=== PATIENT | female | born 1990 | race Caucasian/White ===

== ENCOUNTER → 2020-05-07 | Outpatient (CLI) | payer MEDICAID ==
[~2020-05-07] MED LIST: CEFAZOLIN SODIUM 1000MG/VIAL ONE; DIPHENHYDRAMINE 50MG/ML VIAL ONE; EPHEDRINE SULFATE 50MG/ML VIAL ONE; FERR325T6 MT; GLYCOPYRROLATE 0.2 MG/ML 2ML VIAL ONE; IBUP-2030 PO; METOCLOPRAMIDE HCL 10MG/2ML VIAL ONE; MORPHINE SULFATE/PF 1MG/ML 10ML AMP ONE; OXYTOCIN 10 UNITS/ML 1ML ONE; PHENYLEPHRINE HCL 10 MG/ML 1ML (IV VIAL) IV ONE; PNV1TABL50 MT; SODIUM CHLORIDE 0.9% 10ML VIAL ONE; STERILE WATER FOR INJECTION 10ML VIAL ONE
== END | disposition home or self-care (01) ==
LOC: LAB 12:55
PROVIDERS: ATTEND Obstetrics & Gynecology
DX: Z11.59 Encounter for screening for other viral diseases (principal)
CPT/HCPCS: 87635; C9803; J1200

== ENCOUNTER 2020-05-09 05:46 | Inpatient (IN) | payer MEDICAID ==
[~2020-05-09] VITALS: Ht 152.4 cm; Wt 88.0 kg
[2020-05-09] MEDS ORDERED: PNV1TABL50 MT (06:25)
[2020-05-09] MEDS ORDERED: LACTATED RINGERS 1,000 ML IV SCH (06:26)
[2020-05-09 07:36] LABS: CLARITY URINE CLEAR (CLEAR); COLOR URINE YELLOW (YELLOW); KETONES URINE NEGATIVE (NEGATIVE); LEUKOCYTE ESTERASE URINE NEGATIVE (NEGATIVE); NITRITE URINE NEGATIVE (NEGATIVE); OCCULT BLOOD URINE NEGATIVE (NEGATIVE); PH URINE 6.5 (4.5-8.0); PROTEIN URINE NEGATIVE (NEGATIVE); SPECIFIC GRAVITY URINE 1.023 (1.005-1.030); UROBILINOGEN URINE 0.2 E.U./dL (0.2-1.0)
[2020-05-09 07:39] LABS: BASOPHILS % 0.3 % (0.0-2.0); EOSINOPHILS % 1.3 % (0.0-5.0); HEMATOCRIT. 32.7 % (36.0-48.0); HEMOGLOBIN. 10.5 g/dL (12.0-16.0); LYMPHOCYTES % 25.2 % (20.0-50.0); MEAN CORPUSCULAR HEMOGLOBIN 24.9 pg (28.0-32.0); MEAN CORPUSCULAR VOLUME 77.5 fL (81.0-99.0); MONOCYTES % 7.9 % (2.0-8.0); NEUTROPHILS % 65.3 % (40.0-76.0); PLATELET 188 x1000/uL (130-400); RED BLOOD CELL COUNT 4.22 mill/uL (4.2-5.4); RED CELL DISTRIBUTION WIDTH 17.4 % (11.6-14.6)
[2020-05-09 07:40] LABS: *AMPHETAMINES SCREEN URINE NEGATIVE (NEGATIVE); *BARBITURATES SCREEN URINE NEGATIVE (NEGATIVE); *BENZODIAZEPINES SCREEN URINE NEGATIVE (NEGATIVE)
[2020-05-09 07:41] LABS: *COCAINE SCREEN URINE NEGATIVE (NEGATIVE); METHADONE URINE SCREEN NEGATIVE (NEGATIVE); OPIATES URINE SCREEN NEGATIVE (NEGATIVE)
[2020-05-09 07:42] LABS: CANNABINOID URINE SCREEN NEGATIVE (NEGATIVE); PHENCYCLIDINE URINE SCREEN NEGATIVE (NEGATIVE)
[2020-05-09] MEDS ORDERED: CITRIC ACID/SODIUM CITRATE SOLN 30ML UDC PO ONE (07:45)
[2020-05-09 07:56] LABS: INR 0.9; PARTIAL THROMBOPLASTIN TIME 25.5 sec (23.4-31.0); PROTHROMBIN TIME 9.8 sec (9.6-11.0)
[2020-05-09] MEDS ORDERED: OXYTOCIN 20 UNITS in LACTATED RINGERS 1,000 ML IV SCH (08:00)
[2020-05-09] MEDS ORDERED: DEXT 5%/LR + PITOCIN 20UNITS/L 1,000 ML IV SCH (09:50)
[2020-05-09] MEDS ORDERED: DIPHENHYDRAMINE 50MG/ML VIAL IM PRN (10:00)
[2020-05-09] MEDS ORDERED: IBUPROFEN 400MG TABLET PO PRN (10:00)
[2020-05-09] MEDS ORDERED: BISACODYL 10MG SUPP PR PRN (10:00)
[2020-05-09] MEDS ORDERED: BUTORPHANOL TARTRATE 2 MG/ML VIAL IV PRN (10:00)
[2020-05-09] MEDS ORDERED: RHO(D) IMMUNE GLOBULIN 300 MCG/SYR IM PRN (10:00)
[2020-05-09] MEDS ORDERED: KETOROLAC 30MG/ML VIAL IV PRN (10:00)
[2020-05-09 12:05] LABS: HEPATITIS B SURFACE ANTIGEN NEGATIVE
[2020-05-09 12:30] VITALS: BP 96/48
[2020-05-09 13:09] VITALS: BP 92/45
[2020-05-09 14:30] VITALS: BP 97/40
[2020-05-09 15:51] VITALS: BP 93/43
[2020-05-09 20:50] VITALS: BP 112/71
[2020-05-10 00:40] VITALS: BP 96/53
[2020-05-10 05:00] VITALS: BP 95/5
[2020-05-10 06:51] LABS: BASOPHILS % 0.2 % (0.0-2.0); EOSINOPHILS % 1.5 % (0.0-5.0); HEMATOCRIT. 31.5 % (36.0-48.0); HEMOGLOBIN. 9.9 g/dL (12.0-16.0); LYMPHOCYTES % 12.4 % (20.0-50.0); MEAN CORPUSCULAR HEMOGLOBIN 24.3 pg (28.0-32.0); MEAN CORPUSCULAR VOLUME 77.3 fL (81.0-99.0); MEAN PLATELET VOLUME 10.3 fl (7.4-10.4); MONOCYTES % 6.6 % (2.0-8.0); NEUTROPHILS % 79.3 % (40.0-76.0); PLATELET 167 x1000/uL (130-400); RED BLOOD CELL COUNT 4.08 mill/uL (4.2-5.4); RED CELL DISTRIBUTION WIDTH 17.7 % (11.6-14.6)
[2020-05-10 08:00] VITALS: BP 98/59
[2020-05-10] MEDS: IBUPROFEN 800MG TABLET PO PRN (14:23)
[2020-05-10 15:50] VITALS: BP 106/56
[2020-05-10 20:40] VITALS: BP 103/69
[2020-05-11 00:50] VITALS: BP 103/54
[2020-05-11] MEDS: IBUPROFEN 800MG TABLET PO PRN (01:10)
[2020-05-11 05:10] VITALS: BP 98/58
[2020-05-11] MEDS ORDERED: IBUP-2030 PO (06:56)
[2020-05-11] MEDS ORDERED: FERR325T6 MT (06:56)
[2020-05-11 08:07] VITALS: BP 93/54
== END 2020-05-11 12:30 | disposition home or self-care (01) | DRG 540 ==
LOC: 8 EST LDRP 05:46 → 8EST 11:58
PROVIDERS: ADMIT Obstetrics & Gynecology; ATTEND Obstetrics & Gynecology
PROC: 10D00Z1 Extraction of Products of Conception, Low, Open Approach (ICD-10-PCS; principal; 2020-05-09)
DX: O34.219 Maternal care for unspecified type scar from previous cesarean delivery (principal); O24.420 Gestational diabetes mellitus in childbirth, diet controlled; Z37.0 Single live birth; Z3A.39 39 weeks gestation of pregnancy
CPT/HCPCS: 36415; 80305; 81003; 82947; 85025; 86592; 86703; 86762; 86850; 86900; 86920; 87340; 88307; A4216; J0595; J0690; J2274; J2370; J2765; J3490; J7120